=== PATIENT | male | born 1970 | race Two or more races ===

== ENCOUNTER 2019-11-14 13:44 | Emergency (ER) | payer SELFPAY ==
[~2019-11-14] VITALS: Ht 165.1 cm; Wt 79.0 kg
[2019-11-14 14:09] VITALS: BP 187/104
== END 2019-11-14 15:08 | disposition left against medical advice (07) ==
LOC: ER 13:44
DX: B34.9 Viral infection, unspecified (principal); Z20.828 Contact with and (suspected) exposure to other viral communicable diseases; I10 Essential (primary) hypertension
CPT/HCPCS: 99281